=== PATIENT | female | born 1970 | race African-American/Black ===

== ENCOUNTER 2016-08-24 03:36 | Emergency (ER) | payer MEDICAID ==
[~2016-08-24] VITALS: Ht 160 cm; Wt 99.8 kg
[~2016-08-24 03:36] MED LIST: HYDR-1421
[2016-08-24] MEDS ORDERED: diphenhdrAMINE HCL 50 MG/1 ML VL IM ONE (03:45)
[2016-08-24] MEDS ORDERED: LORazepam 2MG/ML-1ML VIAL IM ONE (03:45)
[2016-08-24] MEDS ORDERED: HALOPERIDOL LACTATE 5 MG/ML INJ VIAL IM ONE (03:45)
[2016-08-24 06:57] LABS: Albumin 3.5 g/dL (3.4-5.0); BUN/Creatinine Ratio 23.5; Bilirubin, Total 0.4 mg/dL (0.2-1.0); Calcium 8.3 mg/dL (8.5-10.1); Potassium 4.1 mmol/L (3.5-5.1); Total Protein 7.1 g/dL (6.4-8.2)
[2016-08-24] MEDS ORDERED: SODIUM CHLORIDE 0.9% 2,000 ML IV ONE (07:45)
[2016-08-24] MEDS ORDERED: SODIUM CHLORIDE 0.9% 1,000 ML IV ONE (07:57)
[2016-08-24] MEDS ORDERED: THIAMINE INJ 100 MG, MULTIPLE VITAMIN 10 ML, FOLIC ACID 1 MG, MAGNESIUM SULF SDV 50% 8 ... IV ONE ×5 (08:00)
[2016-08-24 10:31] LABS: Basophils # (auto) 0 uL; Basophils % (auto) 0.6 % (0.0-2.0); Eosinophils # (auto) 0.3 uL; Eosinophils % (auto) 3.4 % (0.0-7.0); Hematocrit 41.9 % (36.0-46.0); Hemoglobin 13.5 g/dL (12.2-16.2); Lymphocytes # (auto) 2.2 uL; Lymphocytes % (auto) 26.4 % (10.0-50.0); Mean Corpuscular Hemoglobin 28.3 pg (28.0-32.0); Mean Corpuscular Hgb Conc. 32.3 g/dL (32.0-36.0); Mean Corpuscular Volume 87.8 fL (80.0-100.0); Mean Platelet Volume 9.2 fL (7.4-10.4); Monocytes # (auto) 0.4 uL; Monocytes % (auto) 4.7 % (0.0-12.0); Neutrophils # (auto) 5.3 uL; Neutrophils % (auto) 64.9 % (37.0-80.0); Platelet Count (auto) 272 10^3/uL (140-450); White Blood Cell 8.2 10^3/uL (4.4-10.8)
[2016-08-24 10:41] LABS: Urine Bilirubin Negative (Negative); Urine Color Yellow (Yellow); Urine Glucose Normal (Normal); Urine Ketone Negative (Negative); Urine Mucus FEW (None Seen); Urine Nitrite Negative (Negative); Urine RBC 17 /hpf (0 - 4); Urine Squamous Epithelial Cell FEW /hpf (<5); Urine Urobilinogen Normal (Negative); Urine pH 5.5 (5.0-8.0)
[2016-08-24 10:55] LABS: Urine Blood 2+ /uL (Negative)
[2016-08-24] MEDS ORDERED: LABETALOL HCL 5 MG/ML 4ML SYRINGE IV ONE ×2 (12:01→12:15)
[2016-08-24 18:16] VITALS: BP 136/79
== END 2016-08-24 18:19 | disposition home or self-care (01) ==
LOC: EDBD 03:36 → EDUNIT# 03:36 → ER 03:47
DX: G92 Toxic encephalopathy (principal); R41.82 Altered mental status, unspecified; F10.10 Alcohol abuse, uncomplicated; E66.01 Morbid (severe) obesity due to excess calories; Z68.39 Body mass index [BMI] 39.0-39.9, adult; E11.9 Type 2 diabetes mellitus without complications; J45.909 Unspecified asthma, uncomplicated; I10 Essential (primary) hypertension; F17.210 Nicotine dependence, cigarettes, uncomplicated; Z88.6 Allergy status to analgesic agent
CPT/HCPCS: 36415; 51702; 70450; 70490; 73070; 80053; 80320; 81001; 81025; 82962; 85025; 93005; 94761; 96361; 96365; 96372; 96375; 99285; G0434; J3411; J3475; J3490; J7030; J7040

== ENCOUNTER 2016-08-28 04:41 | Emergency (ER) | payer MEDICAID ==
[~2016-08-28] VITALS: Ht 160 cm; Wt 102.1 kg
[2016-08-28 05:20] LABS: Basophils # (auto) 0 uL; Basophils % (auto) 0.4 % (0.0-2.0); Eosinophils # (auto) 0.4 uL; Eosinophils % (auto) 6.1 % (0.0-7.0); Hematocrit 40.5 % (36.0-46.0); Hemoglobin 13.6 g/dL (12.2-16.2); Lymphocytes # (auto) 2.4 uL; Lymphocytes % (auto) 34.9 % (10.0-50.0); Mean Corpuscular Hemoglobin 28.6 pg (28.0-32.0); Mean Corpuscular Hgb Conc. 33.6 g/dL (32.0-36.0); Mean Corpuscular Volume 85.1 fL (80.0-100.0); Mean Platelet Volume 9.1 fL (7.4-10.4); Monocytes # (auto) 0.4 uL; Monocytes % (auto) 5.2 % (0.0-12.0); Neutrophils # (auto) 3.7 uL; Neutrophils % (auto) 53.4 % (37.0-80.0); Platelet Count (auto) 301 10^3/uL (140-450); Red Cell Distribution Width 14.6 % (11.6-16.0); White Blood Cell 6.9 10^3/uL (4.4-10.8)
[2016-08-28 05:42] LABS: Albumin 3.7 g/dL (3.4-5.0); BUN/Creatinine Ratio 32.4; Bilirubin, Total 0.7 mg/dL (0.2-1.0); Calcium 8.7 mg/dL (8.5-10.1); Potassium 3.7 mmol/L (3.5-5.1); Total Protein 7.4 g/dL (6.4-8.2)
[2016-08-28] MEDS ORDERED: MORPHINE SULF INJ 2 MG/ML SYRINGE 1ML IV ONE (06:00)
[2016-08-28] MEDS ORDERED: ONDANSETRON HCL 4 MG/2 ML VIAL IV ONE (06:00)
[2016-08-28 08:49] LABS: Urine RBC None Seen /hpf (0 - 4)
[2016-08-28 09:19] LABS: Urine Bilirubin Negative (Negative); Urine Blood Negative /uL (Negative); Urine Color Yellow (Yellow); Urine Glucose Normal (Normal); Urine Ketone Negative (Negative); Urine Mucus FEW (None Seen); Urine Nitrite Negative (Negative); Urine Squamous Epithelial Cell MOD /hpf (<5); Urine pH 5.5 (5.0-8.0)
[2016-08-28] MEDS ORDERED: PROMETHAZINE HCL 25 MG/ML 1ML IV ONE (09:30)
[2016-08-28] MEDS ORDERED: NALBUPHINE HCL 10 MG/1ml INJECTION IV ONE (09:30)
[2016-08-28 09:34] VITALS: BP 97/48
== END 2016-08-28 10:28 | disposition home or self-care (01) ==
LOC: ER 04:43
DX: S05.12XA Contusion of eyeball and orbital tissues, left eye, initial encounter (principal); S05.11XA Contusion of eyeball and orbital tissues, right eye, initial encounter; H11.32 Conjunctival hemorrhage, left eye; I10 Essential (primary) hypertension; E11.9 Type 2 diabetes mellitus without complications; E66.01 Morbid (severe) obesity due to excess calories; Z68.42 Body mass index [BMI] 45.0-49.9, adult; F17.210 Nicotine dependence, cigarettes, uncomplicated; J45.909 Unspecified asthma, uncomplicated; Z88.6 Allergy status to analgesic agent; V89.2XXA Person injured in unspecified motor-vehicle accident, traffic, initial encounter; Y93.9 Activity, unspecified; Y99.8 Other external cause status; Y92.89 Other specified places as the place of occurrence of the external cause
CPT/HCPCS: 36415; 70450; 70486; 80053; 81001; 85025; 96374; 96375; 99285; J2270; J2300; J2405; J2550

== ENCOUNTER 2016-12-25 21:54 | Emergency (ER) | payer MEDICAID ==
[~2016-12-25] VITALS: Ht 160 cm; Wt 108.9 kg
[2016-12-25] MEDS ORDERED: cloNIDine HCL 0.1 MG TAB PO ONE (22:45)
[2016-12-25 22:58] LABS: Basophils # (auto) 0 uL; Basophils % (auto) 0.4 % (0.0-2.0); CONDITION Y; Eosinophils # (auto) 0.4 uL; Hematocrit 40.4 % (36.0-46.0); Hemoglobin 13.4 g/dL (12.2-16.2); Lymphocytes # (auto) 2.4 uL; Lymphocytes % (auto) 32.9 % (10.0-50.0); Mean Corpuscular Hemoglobin 29.1 pg (28.0-32.0); Mean Corpuscular Hgb Conc. 33.2 g/dL (32.0-36.0); Mean Corpuscular Volume 87.6 fL (80.0-100.0); Mean Platelet Volume 9.2 fL (7.4-10.4); Monocytes # (auto) 0.5 uL; Monocytes % (auto) 6.2 % (0.0-12.0); Neutrophils % (auto) 54.5 % (37.0-80.0); Platelet Count (auto) 303 10^3/uL (140-450); Red Cell Distribution Width 15.4 % (11.6-16.0); White Blood Cell 7.4 10^3/uL (4.4-10.8)
[2016-12-25 23:03] LABS: Albumin 3.4 g/dL (3.4-5.0); Anion Gap 9 (5-15); BUN/Creatinine Ratio 23.5; Blood Urea Nitrogen 16 mg/dL (7-18); Calcium 8.5 mg/dL (8.5-10.1); Carbon Dioxide 27 mmol/L (21-32); Chloride 106 mmol/L (98-107); GFR African American 119 mL/min; GFR Non-African American 99 mL/min; Glucose 139 mg/dL (74-106); Sodium 142 mmol/L (136-145)
[2016-12-25 23:07] LABS: Alkaline Phosphatase 121 U/L (45-117); Bilirubin, Total 0.3 mg/dL (0.2-1.0); Total Protein 7.5 g/dL (6.4-8.2)
[2016-12-25 23:09] LABS: INR 0.94 (0.9-1.15); Partial Thromboplastin Time 25.2 sec (22.64-33.71); Prothrombin Time 10.2 sec (9.37-12.3)
[2016-12-25 23:34] LABS: B-Type Natriuretic Peptide 10.92 pg/mL (0-100)
[2016-12-25 23:40] LABS: Temperature: 22.3 C (20.0-25.0)
[2016-12-26 00:22] LABS: Aspartate Aminotransferase 22 U/L (15-37); Potassium 3.5 mmol/L (3.5-5.1)
[2016-12-26 07:16] VITALS: BP 149/69
== END 2016-12-26 08:09 | disposition home or self-care (01) ==
LOC: ER 22:02
DX: M79.672 Pain in left foot (principal); R07.89 Other chest pain; J45.909 Unspecified asthma, uncomplicated; F17.210 Nicotine dependence, cigarettes, uncomplicated; I10 Essential (primary) hypertension; E11.9 Type 2 diabetes mellitus without complications; Z88.6 Allergy status to analgesic agent
CPT/HCPCS: 36415; 71010; 80053; 82962; 83880; 84484; 85025; 85379; 85610; 85730; 93005

== ENCOUNTER 2018-03-20 13:00 | Observation (INO) | payer MEDICAID ==
[~2018-03-20] VITALS: Ht 160 cm; Wt 95.3 kg
[2018-03-20] MEDS ORDERED: SODIUM CHLORIDE 0.9% 250 ML IV ONE (14:05)
[2018-03-20 14:54] LABS: Basophils # (auto) 0.1 uL; Basophils % (auto) 0.9 % (0.0-2.0); Eosinophils # (auto) 0.4 uL; Eosinophils % (auto) 5.4 % (0.0-7.0); Hematocrit 45.3 % (36.0-46.0); Hemoglobin 15.4 g/dL (12.2-16.2); Lymphocytes # (auto) 1.8 uL; Lymphocytes % (auto) 24.3 % (10.0-50.0); Mean Corpuscular Hemoglobin 29.9 pg (28.0-32.0); Mean Corpuscular Hgb Conc. 33.9 g/dL (32.0-36.0); Mean Corpuscular Volume 88.4 fL (80.0-100.0); Monocytes # (auto) 0.4 uL; Monocytes % (auto) 4.8 % (0.0-12.0); Neutrophils # (auto) 4.8 uL; Neutrophils % (auto) 64.6 % (37.0-80.0); Platelet Count (auto) 301 10^3/uL (140-450); Red Blood Cells 5.13 10^6/uL (4.0-5.20); Red Cell Distribution Width 14.5 % (11.8-14.3); White Blood Cell 7.4 10^3/uL (4.4-10.8)
[2018-03-20 15:13] LABS: Salicylate 2.6 mg/dL (2.8-20.0)
[2018-03-20 15:14] LABS: Alanine Aminotransferase 43 U/L (13-56); Albumin 3.8 g/dL (3.4-5.0); Anion Gap 8 (5-15); Aspartate Aminotransferase 18 U/L (15-37); Blood Alcohol < 3.0 mg/dL (0-5); Blood Urea Nitrogen 17 mg/dL (7-18); Calcium 8.9 mg/dL (8.5-10.1); Carbon Dioxide 26 mmol/L (21-32); Chloride 104 mmol/L (98-107); GFR African American 91 mL/min; GFR Non-African American 76 mL/min; Glucose 132 mg/dL (74-106); Potassium 3.7 mmol/L (3.5-5.1); Sodium 138 mmol/L (136-145)
[2018-03-20 15:15] LABS: Acetaminophen < 2.0 ug/mL (10-30)
[2018-03-20] MEDS ORDERED: NICOTINE 14 MG/24HR TOPICAL PATCH TD ONE (15:15)
[2018-03-20 15:16] LABS: Alkaline Phosphatase 110 U/L (45-117); Bilirubin, Total 0.5 mg/dL (0.2-1.0); Total Protein 8.1 g/dL (6.4-8.2)
[2018-03-20 15:36] LABS: Urine Pregnacy Test Negative (Negative)
[2018-03-20 16:00] LABS: Alcohol, Urine < 3.0 mg/dL (0-5); Amphetamine Screen, Urine NEGATIVE (NEGATIVE); Barbiturate Scree,Urine NEGATIVE (NEGATIVE); Benzodiazephine Screen, Urine NEGATIVE (NEGATIVE); Cannabinoid Screen, Urine NEGATIVE (NEGATIVE); Cocaine Screen, Urine NEGATIVE (NEGATIVE); Opiate Scree,Urine NEGATIVE (NEGATIVE); Phencyclidine Screen, Urine NEGATIVE (NEGATIVE)
[2018-03-20 16:10] LABS: Urine Bacteria FEW /hpf (None Seen); Urine Blood Negative /uL (Negative); Urine Mucus FEW (None Seen); Urine Specific Gravity 1.021 (1.001-1.035); Urine WBC 5 /hpf (0 - 5)
[2018-03-20 20:18] VITALS: BP 149/100
[2018-03-20] MEDS ORDERED: LORazepam 2MG/ML-1ML VIAL IV ONE (23:30)
== END 2018-03-21 01:10 | disposition left against medical advice (07) | DRG 812 ==
LOC: EDBD 13:00 → ER 13:00 → OVERFLOW 13:01 → ER 03-21 01:10
PROVIDERS: ADMIT Emergency Medicine; ATTEND Emergency Medicine
DX: T50.902A Poisoning by unspecified drugs, medicaments and biological substances, intentional self-harm, initial encounter (principal); I21.9 Acute myocardial infarction, unspecified; E11.9 Type 2 diabetes mellitus without complications; J45.909 Unspecified asthma, uncomplicated; I10 Essential (primary) hypertension; E78.5 Hyperlipidemia, unspecified; G51.0 Bell's palsy; I77.6 Arteritis, unspecified; F17.210 Nicotine dependence, cigarettes, uncomplicated
CPT/HCPCS: 36415; 80053; 80307; 80320; 80329; 81001; 81025; 82962; 84484; 85025; 93005; 96374; 99285; G0378; J2060; J7030

== ENCOUNTER 2019-07-11 14:24 | Emergency (ER) | payer MEDICAID ==
[~2019-07-11] VITALS: Ht 160 cm; Wt 88.5 kg
[2019-07-11 14:30] VITALS: BP 142/100
== END 2019-07-11 18:19 | disposition left against medical advice (07) ==
LOC: ER 14:24 → EDBD 14:24 → ER 18:19
DX: R35.0 Frequency of micturition (principal); Z53.21 Procedure and treatment not carried out due to patient leaving prior to being seen by health care provider

== ENCOUNTER 2020-11-23 09:14 | Inpatient (IN) | payer MEDICAID ==
[~2020-11-23] VITALS: Ht 160 cm; Wt 97.0 kg
[2020-11-23 09:52] LABS: Basophils # (auto) 0 10 ^3/uL (0-0.2); Basophils % (auto) 0.7 % (0.0-2.0); Eosinophils # (auto) 0.3 10 ^3/uL (0-0.8); Eosinophils % (auto) 4.3 % (0.0-7.0); Hematocrit 37.3 % (36.0-46.0); Hemoglobin 12.9 g/dL (12.2-16.2); Lymphocytes % (auto) 14.4 % (10.0-50.0); Mean Corpuscular Hemoglobin 29.2 pg (28.0-32.0); Mean Corpuscular Hgb Conc. 34.5 g/dL (32.0-36.0); Mean Corpuscular Volume 84.5 fL (80.0-100.0); Monocytes # (auto) 0.3 10 ^3/uL (0-1.3); Monocytes % (auto) 3.8 % (0.0-12.0); Neutrophils # (auto) 5.4 10 ^3/uL (1.6-8.6); Neutrophils % (auto) 76.8 % (37.0-80.0); Nucleated Red Blood Cells % 0.1 %; Platelet Count (auto) 333 10^3/uL (140-450); Red Blood Cells 4.41 10^6/uL (4.0-5.20); White Blood Cell 7.1 10^3/uL (4.4-10.8)
[2020-11-23] MEDS ORDERED: MORPHINE SULFATE 4 MG/ML SYR/VIAL IV ONE (10:00)
[2020-11-23] MEDS ORDERED: ONDANSETRON HCL 4 MG/2 ML VIAL IV ONE (10:00)
[2020-11-23 10:03] LABS: Albumin 3.4 g/dL (3.4-5.0); Calcium 8.8 mg/dL (8.5-10.1); Magnesium 1.8 mg/dL (1.6-2.6)
[2020-11-23 10:09] LABS: BUN/Creatinine Ratio 22.8; Bilirubin, Total 0.5 mg/dL (0.2-1.0); Total Protein 7.5 g/dL (6.4-8.2)
[2020-11-23 10:17] LABS: Potassium 2.7 mmol/L (3.5-5.1)
[2020-11-23 10:27] LABS: INR 1.03 (0.9-1.15); Partial Thromboplastin Time 23.6 sec (23.0-31.2)
[2020-11-23] MEDS: POTASSIUM CHL 20MEQ/100ML 100 ML IV SCH ×2 (11:10→13:24)
[2020-11-23] MEDS ORDERED: HYDROcodone-ACET 5/325MG TAB PO PRN (11:45)
[2020-11-23] MEDS ORDERED: MORPHINE SULF INJ 2 MG/ML SYRINGE 1ML IV PRN (11:45)
[2020-11-23] MEDS ORDERED: NITROGLYCERIN 0.4 MG SL TAB SL PRN (11:45)
[2020-11-23] MEDS ORDERED: POTASSIUM CHLORIDE 20 MEQ, LIDOCAINE 1% (LOCAL ANESTH.) 2 ML in SODIUM CHL 0.9% 100 ML IV ONE (13:30)
[2020-11-23] MEDS ORDERED: ACETAMINOPHEN 500 MG TAB PO ONE (16:30)
[2020-11-23 17:52] VITALS: BP 156/84
[2020-11-23] MEDS: ONDANSETRON HCL 4 MG/2 ML VIAL IV PRN (19:24)
[2020-11-23] MEDS: MORPHINE SULF INJ 2 MG/ML SYRINGE 1ML IV PRN (19:25)
[2020-11-23] MEDS: GLIMEPIRIDE 2 MG TAB PO SCH (20:55)
[2020-11-23] MEDS ORDERED: NICOTINE 21MG/24 HR TOPICAL PATCH TD ONE (21:45)
[2020-11-23] MEDS ORDERED: DEXTROSE (50%) 50ML SYRG IV PRN (21:45)
[2020-11-23 22:00] VITALS: BP 147/78
[2020-11-23] MEDS ORDERED: InsuLIN REG 1unit/0.01ml Soln (100units/ml) SC SCH (22:00)
[2020-11-23] MEDS: ACCU-CHEK COMFORT CURVE STRIP VI SCH (22:15)
[2020-11-24] MEDS: ONDANSETRON HCL 4 MG/2 ML VIAL IV PRN ×4 (04:19→17:51)
[2020-11-24] MEDS: MORPHINE SULF INJ 2 MG/ML SYRINGE 1ML IV PRN ×4 (04:20→17:51)
[2020-11-24 05:00] VITALS: BP 151/86
[2020-11-24] MEDS: InsuLIN REG 1unit/0.01ml Soln (100units/ml) SC SCH ×3 (06:19→18:27)
[2020-11-24] MEDS: ACCU-CHEK COMFORT CURVE STRIP VI SCH ×3 (06:19→18:10)
[2020-11-24 06:25] LABS: Basophils # (auto) 0 10 ^3/uL (0-0.2); Basophils % (auto) 0.5 % (0.0-2.0); Eosinophils # (auto) 0.1 10 ^3/uL (0-0.8); Eosinophils % (auto) 1.5 % (0.0-7.0); Hematocrit 35.6 % (36.0-46.0); Hemoglobin 12.1 g/dL (12.2-16.2); Lymphocytes # (auto) 0.8 10 ^3/uL (0.4-5.4); Lymphocytes % (auto) 17.5 % (10.0-50.0); Mean Corpuscular Volume 85.4 fL (80.0-100.0); Monocytes # (auto) 0.4 10 ^3/uL (0-1.3); Monocytes % (auto) 7.8 % (0.0-12.0); Neutrophils # (auto) 3.5 10 ^3/uL (1.6-8.6); Neutrophils % (auto) 72.7 % (37.0-80.0); Platelet Count (auto) 256 10^3/uL (140-450); Red Blood Cells 4.17 10^6/uL (4.0-5.20); Red Cell Distribution Width 16.2 % (11.8-14.3); White Blood Cell 4.8 10^3/uL (4.4-10.8)
[2020-11-24 07:00] LABS: Albumin 3.3 g/dL (3.4-5.0); Calcium 8.1 mg/dL (8.5-10.1)
[2020-11-24 07:01] LABS: BUN/Creatinine Ratio 21.9
[2020-11-24 07:04] LABS: Bilirubin, Total 0.5 mg/dL (0.2-1.0); Total Protein 6.8 g/dL (6.4-8.2)
[2020-11-24 07:09] LABS: Potassium 2.9 mmol/L (3.5-5.1)
[2020-11-24 08:00] VITALS: BP 137/88
[2020-11-24] MEDS ORDERED: POTASSIUM CHLORIDE 20 MEQ, LIDOCAINE 1% (LOCAL ANESTH.) 2 ML in SODIUM CHL 0.9% 100 ML IV ONE (08:30)
[2020-11-24] MEDS ORDERED: POTASSIUM CHL 20 Meq TABLET PO ONE (08:30)
[2020-11-24] MEDS: GLIMEPIRIDE 2 MG TAB PO SCH (08:50)
[2020-11-24] MEDS: METOPROLOL TARTRATE 25 MG TAB PO SCH ×2 (08:51→08:56)
[2020-11-24 09:00] VITALS: BP 137/88
[2020-11-24] MEDS ORDERED: NICOTINE 21MG/24 HR TOPICAL PATCH TD SCH (10:00)
[2020-11-24] MEDS ORDERED: ASPirin 81 mg TAB PO SCH (10:00)
[2020-11-24] MEDS ORDERED: amLODIPine BESYLATE 5 MG TAB PO SCH (10:00)
[2020-11-24] MEDS ORDERED: IOHEXOL 350 MG/ML 100ML IJ ONE (11:25)
[2020-11-24 12:30] LABS: Potassium 3.5 mmol/L (3.5-5.1)
[2020-11-24 12:31] LABS: Magnesium 1.8 mg/dL (1.6-2.6)
[2020-11-24] MEDS: POTASSIUM CHL 20 Meq TABLET PO SCH ×2 (12:33→18:32)
[2020-11-24 17:28] VITALS: BP 133/85
[2020-11-24 19:04] VITALS: BP 137/88
== END 2020-11-24 19:20 | disposition left against medical advice (07) | DRG 198 ==
LOC: ER 09:14 → EDBD 09:14 → TELE 11:43 → TELE-WESTW 17:46
PROVIDERS: ADMIT Internal Medicine; ATTEND Internal Medicine
DX: R07.89 Other chest pain (principal); I25.10 Atherosclerotic heart disease of native coronary artery without angina pectoris; E11.40 Type 2 diabetes mellitus with diabetic neuropathy, unspecified; E66.01 Morbid (severe) obesity due to excess calories; E87.6 Hypokalemia; I10 Essential (primary) hypertension; Z20.822 Contact with and (suspected) exposure to COVID-19; F17.210 Nicotine dependence, cigarettes, uncomplicated; I25.2 Old myocardial infarction; Z81.8 Family history of other mental and behavioral disorders; Z82.49 Family history of ischemic heart disease and other diseases of the circulatory system; Z90.49 Acquired absence of other specified parts of digestive tract; Z68.33 Body mass index [BMI] 33.0-33.9, adult; Z53.29 Procedure and treatment not carried out because of patient's decision for other reasons
CPT/HCPCS: 36415; 71045; 71275; 80053; 82962; 83735; 84132; 84484; 85025; 85610; 85730; 87426; 93005; 93306; 96361; 96374; 96375; G0378; J1815; J2001; J2405; J3480